=== PATIENT | male | born 1955 | race Caucasian/White ===

== ENCOUNTER 2017-10-06 07:21 | Day surgery (SDC) | payer BC, OTHER ==
[2017-10-06] MEDS ORDERED: ceFAZolin 2 GM/SWFI 2 GM/20 ML SYR IVP ONE (07:24)
[2017-10-06] MEDS ORDERED: BUPIVACAINE 0.5% 30 ML SDV ONE (08:12)
--- NOTE | 2017-10-06 08:24 | PDHPUP ---
History & Physical Update H&P update statement: This history and physical update is based on an assessment of the patient which was completed after admission or registration (within 24 hours), but prior to the surgery/procedure. H&P update: H&P reviewed & patient examined, no change in patient's condition since H&P completed
--- NOTE | 2017-10-06 08:31 | PDANEPAE ---
ANE Past Medical History - Cardiovascular History Hx Hypertension: No Hx Arrhythmias: Yes Hx Chest Pain: No Hx Coronary Artery / Peripheral Vascular Disease: No Hx CHF / Valvular Disease: No Hx Palpitations: No Cardiovascular History Comment: hx Afib/ablation 2014 - Pulmonary History Hx COPD: No Hx Asthma/Reactive Airway Disease: No Hx Recent Upper Respiratory Infection: No Hx Oxygen in Use at Home: No Hx Sleep Apnea: No Sleep Apnea Screening Result - Last Documented: Negative - Neurologic History Hx Cerebrovascular Accident: No Hx Seizures: No Hx Dementia: No - Endocrine History Hx Diabetes: No Hypothyroid: Yes Hyperthyroid: No Obesity: mild - Renal History Hx Renal Disorders: No - Liver History Hx Hepatic Disorders: No - Neurological & Psychiatric Hx Hx Neurological and Psychiatric Disorders: No - Cancer History Hx Cancer: No - Congenital Disorder History Hx Congenital Disorders: No - GI History Hx Gastrointestinal Disorders: Yes Gastrointestinal History Comment: reflux - Other Health History Other Health History: none - Chronic Pain History Chronic Pain: No - Surgical History Prior Surgeries: umbical hernia,knee surgery ANE Review of Systems Review of Systems: - Exercise capacity METS (RN): 4 METS ANE Patient History - Allergies Allergies/Adverse Reactions: No Known Allergies Allergy (Verified 09/26/17 15:17) - NPO status NPO Since - Liquids (Date): 10/05/17 NPO Since - Liquids (Time): 19:30 NPO Since - Solids (Date): 10/05/17 NPO Since - Solids (Time): 19:30 - Smoking Hx Smoking Status: Never smoked - Family Anes Hx Family Hx Anesthesia Complications: none ANE Labs/Vital Signs - Vital Signs Blood Pressure: 142/92 Heart Rate: 65 Respiratory Rate: 16 O2 Sat (%): 93 Height: 193.04 cm Weight: 108.862 kg ANE Physical Exam - Airway Neck exam: FROM Mallampati Score: Class 1 Mouth exam: normal dental/mouth exam - Pulmonary Pulmonary: no respiratory distress - Cardiovascular Cardiovascular: regular rate and rhythym - ASA Status ASA Status: II ANE Anesthesia Plan Anesthesia Plan: general endotracheal anesthesia
[2017-10-06] MEDS ORDERED: fentaNYL 250 MCG/5 ML INJ ONE (08:34)
[2017-10-06] MEDS ORDERED: PROPOFOL/EMULSION 500 MG/50 ML BOTTLE IV ONE (08:34)
[2017-10-06] MEDS ORDERED: GLYCOPYRROLATE 0.2 MG/1 ML VIAL ONE ×2 (09:28)
[2017-10-06] MEDS ORDERED: NEOSTIGMINE METHYLSULFATE 3 MG/3 ML SYR ONE ×2 (09:39→09:40)
[2017-10-06] MEDS ORDERED: ROCURONIUM 100 MG/10 ML VIAL ONE (09:40)
[2017-10-06] MEDS ORDERED: LIDOCAINE 2% 5 ML SDV ONE (09:40)
[2017-10-06] MEDS ORDERED: KETOROLAC 30 MG/1 ML SDV ONE (09:41)
[2017-10-06] MEDS ORDERED: LR 500 ML IV PRN (09:58)
[2017-10-06] MEDS ORDERED: PROMETHAZINE HCL 25 MG/ML INJ IVP PRN (09:58)
[2017-10-06] MEDS ORDERED: NALOXONE HCL 0.4 MG/ML INJ IVP PRN (09:58)
[2017-10-06] MEDS ORDERED: LABETALOL HCL 5 MG/ML 20 ML MDV IVP PRN (09:58)
[2017-10-06] MEDS ORDERED: HYDROCODONE/APAP 5/325 TAB PO PRN (09:58)
[2017-10-06] MEDS ORDERED: fentaNYL 100 MCG/2 ML INJ IVP PRN (09:58)
--- NOTE | 2017-10-06 09:58 | POSTOPPROG ---
Post Op Note Date of Operation: 10/06/17 Surgeon: John Paul Brewer Anesthesiologist: Dr. Isidro Anesthesia: GET(General Endotracheal) Pre-op Diagnosis: BIH Post-op Diagnosis: BIH Procedure: Lap BIHR Inf/Abcess present in the surg proc area at time of surgery?: No EBL: Minimal
--- NOTE | 2017-10-06 10:00 | POSTANESTH ---
Post Anesthetic Evaluation Cardiovascular Status: Normal, Stable Respiratory Status: Normal, Stable Level of Consciousness/Mental Status: Mildly Sleepy, Arousable Pain Control: Adequate, Prn Tx Ordered Nausea/Vomiting Control: Adequate, Prn Tx Ordered Complications Possibly Related to Anesthesia: None Noted
[2017-10-06 10:43] VITALS: BP 134/86
[2017-10-06 11:43] VITALS: PULSE 57; RESP 16; TEMP 97.5; O2SAT 97
--- NOTE | 2017-10-06 18:59 | GOP ---
[f rep st] OPERATIVE REPORT DATE OF OPERATION: 10/06/2017 SURGEON: Donaldo Brewer MD ANESTHESIA: General endotracheal anesthesia. ANESTHESIOLOGIST: Lemuel Isidro MD PREOPERATIVE DIAGNOSIS: Bilateral inguinal hernia. POSTOPERATIVE DIAGNOSIS: Bilateral inguinal hernia. PROCEDURE PERFORMED: Laparoscopic totally extraperitoneal bilateral inguinal hernia repair. FINDINGS: The patient had a [id number] indirect hernia on the left and a small to moderate indirect hernia on the right. No other lesions were identified here. ESTIMATED BLOOD LOSS: 20 cc. INDICATIONS: A 61-year-old male with a history of groin bulge. Risks and benefits of the procedure were discussed with the patient's family, their questions were answered and they wished to proceed. DESCRIPTION OF PROCEDURE: The patient was placed in the supine position. After the induction of adequate general endotracheal anesthesia, the patient was prepped and draped in the sterile surgical fashion. Marcaine 0.5% was injected in the infra-umbilical area and a transverse incision was made, approximately 10 mm in length. This was carried down to the subcutaneous tissue with blunt dissection. The anterior fascia was exposed and incised just lateral to the midline. The preperitoneal space was then created bluntly, and the balloon dissector introduced. Once this was appropriately positioned, it was inflated under direct vision using the laparoscope. Once adequate dissection had been obtained, the balloon was deflated and withdrawn. The balloon stabilizer was then placed into the same preperitoneal plane. The balloon stabilizer was then inflated. The preperitoneal space was then insufflated with carbon dioxide. Two more trocars were placed, both in the midline in the supraumbilical and mid lower abdomen sites. These were both placed under direct vision after injecting 0.5% Marcaine for local anesthesia. Blunt dissection was used to expose Hesselbach's triangle. Jase's ligament was then exposed and the femoral space explored. Next the space of Bogros was cleared laterally. The cord structures were seen and preserved, and the preperitoneal fat was retracted in a [id number] fashion. The hernia sac was then retracted in a similar fashion. A shaped mesh was then introduced through the 11-mm trocar and oriented appropriately. It was positioned to ensure coverage of the direct, indirect, and femoral spaces. The peritoneum and preperitoneal fat was placed over the bottom edge of the mesh to ensure placement. The carbon dioxide was then allowed to escape and the mesh observed to ensure positioning. All trocars were then removed under direct vision. Good hemostasis was noted. The fascia at the 11-mm trocar site was closed with 0 Vicryl in an interrupted fashion. The wounds were thoroughly irrigated, and the skin was closed with 5- 0 Monocryl in a subcuticular stitch. The wounds were sterilely dressed. The patient was extubated and taken to the post-anesthesia care unit in stable condition. Addendum: A large Bard 3D Max mesh was used on each side. COMPLICATIONS: None. DRAINS: None. /[id number]/MODL MTDD
== END 2017-10-06 11:25 | disposition home or self-care (01) ==
LOC: FSGY 07:21
PROVIDERS: ATTEND Surgery
PROC: 0YUA4JZ Supplement Bilateral Inguinal Region with Synthetic Substitute, Percutaneous Endoscopic Approach (ICD-10-PCS; principal; 2017-10-06 08:30)
DX: K40.20 Bilateral inguinal hernia, without obstruction or gangrene, not specified as recurrent (principal); E03.9 Hypothyroidism, unspecified; K21.9 Gastro-esophageal reflux disease without esophagitis
CPT/HCPCS: C1727; C1781; J0690; J1885; J2704; J2710; J3010

== ENCOUNTER → 2018-12-17 | Outpatient (CLI) | payer OTHER | LOC: FIMAGING 19:45 | PROVIDERS: ATTEND Physical Medicine & Rehabilitation | DX: M54.6 Pain in thoracic spine (principal) ==